=== PATIENT | female | born 1970 | race African-American/Black ===

== ENCOUNTER 2016-11-20 20:57 | Emergency (ER) | payer MEDICAID ==
[~2016-11-20] VITALS: Ht 167.6 cm; Wt 73.0 kg
[2016-11-21] MEDS ORDERED: KETOROLAC 60MG/2ML VIAL IM ONE (02:15)
[2016-11-21 04:31] LABS: CLARITY URINE CLOUDY (CLEAR); COLOR URINE YELLOW (YELLOW); GLUCOSE URINE NEGATIVE (NEGATIVE); KETONES URINE NEGATIVE (NEGATIVE); LEUKOCYTE ESTERASE URINE 1+ (NEGATIVE); NITRITE URINE POSITIVE (NEGATIVE); OCCULT BLOOD URINE NEGATIVE (NEGATIVE); PROTEIN URINE NEGATIVE (NEGATIVE); SPECIFIC GRAVITY URINE 1.014 (1.005-1.030); UROBILINOGEN URINE 0.2 E.U./dL (0.2-1.0)
[2016-11-21 08:28] VITALS: BP 148/82
== END 2016-11-21 05:44 | disposition home or self-care (01) ==
LOC: ER 21:09
DX: N39.0 Urinary tract infection, site not specified (principal); I10 Essential (primary) hypertension; J45.909 Unspecified asthma, uncomplicated; M19.90 Unspecified osteoarthritis, unspecified site; M25.571 Pain in right ankle and joints of right foot; Z88.0 Allergy status to penicillin
CPT/HCPCS: 81001; 81025; 93970; 96372; 99285; J1885

== ENCOUNTER 2016-12-01 14:18 | Emergency (ER) | payer MEDICAID ==
[~2016-12-01] VITALS: Ht 162.6 cm; Wt 80.0 kg
[2016-12-01] MEDS ORDERED: KETOROLAC 60MG/2ML VIAL IM ONE (20:30)
[2016-12-01 23:00] VITALS: BP 184/80
== END 2016-12-01 23:29 | disposition home or self-care (01) ==
LOC: ER 20:26
DX: S82.001A Unspecified fracture of right patella, initial encounter for closed fracture (principal); M19.90 Unspecified osteoarthritis, unspecified site; I10 Essential (primary) hypertension; J45.909 Unspecified asthma, uncomplicated; Z88.0 Allergy status to penicillin; W01.0XXA Fall on same level from slipping, tripping and stumbling without subsequent striking against object, initial encounter; Y93.89 Activity, other specified; Y92.018 Other place in single-family (private) house as the place of occurrence of the external cause
CPT/HCPCS: 29505; 73562; 73610; 96372; 99284; J1885

== ENCOUNTER 2018-04-17 03:35 | Inpatient (IN) | payer MEDICAID ==
[~2018-04-17] VITALS: Ht 167.6 cm; Wt 80.7 kg
[2018-04-17] MEDS ORDERED: ONDANSETRON HCL 4MG/2ML INJ IV STA (04:35)
[2018-04-17] MEDS ORDERED: ASPIRIN 81MG TABLET PO ONE (04:45)
[2018-04-17] MEDS ORDERED: NITROGLYCERIN OINT 1GM/INCH UDPKT TD ONE (04:45)
[2018-04-17] MEDS ORDERED: MORPHINE SULFATE 10 MG/ML CPJ IV ONE (04:45)
[2018-04-17 05:25] LABS: HEMATOCRIT. 32.2 % (36.0-48.0); HEMOGLOBIN. 9.9 g/dL (12.0-16.0); MEAN CORPUSCULAR HEMOGLOBIN 24.5 pg (28.0-32.0); MEAN CORPUSCULAR VOLUME 79.5 fL (81.0-99.0); MEAN PLATELET VOLUME 11.2 fl (7.4-10.4); PLATELET 152 x1000/uL (130-400); RED BLOOD CELL COUNT 4.05 mill/uL (4.2-5.4); RED CELL DISTRIBUTION WIDTH 23.6 % (11.6-14.6)
[2018-04-17 05:32] LABS: CHLORIDE 112 mEq/L (98-107)
[2018-04-17 07:12] LABS: PLATELET ESTIMATE NORMAL
[2018-04-17] MEDS ORDERED: DOCUSATE SODIUM 100MG CAPSULE PO PRN (09:15)
[2018-04-17] MEDS ORDERED: CLONIDINE 0.1MG TABLET PO PRN (09:15)
[2018-04-17] MEDS ORDERED: IPRATROPIUM/ALBUTEROL 0.5-3(2.5)MG/3ML NEB INH PRN (09:15)
[2018-04-17] MEDS ORDERED: ONDANSETRON HCL 4MG/2ML INJ IV PRN (09:15)
[2018-04-17] MEDS ORDERED: GUAIFENESIN 200MG/10ML SUGAR FREE UDC PO PRN (09:15)
[2018-04-17] MEDS ORDERED: ACETAMINOPHEN 325MG TABLET PO PRN (09:15)
[2018-04-17] MEDS ORDERED: MAGNESIUM/ALUMINUM HYDROXIDE/SIMETHICONE 30ML UDC PO PRN (09:15)
[2018-04-17] MEDS ORDERED: LORAZEPAM 0.5MG TABLET PO PRN (09:15)
[2018-04-17] MEDS ORDERED: NITROGLYCERIN 0.4MG TABLET SL SL PRN (09:15)
[2018-04-17 10:52] VITALS: BP 134/70
[2018-04-17] MEDS ORDERED: LOSA25TA3 MT (11:33)
[2018-04-17] MEDS ORDERED: IBUP-1649 MT (11:33)
[2018-04-17] MEDS ORDERED: FERR325T23 MT (11:33)
[2018-04-17] MEDS ORDERED: HYDR-3281 MT (11:33)
[2018-04-17] MEDS ORDERED: FURO-152 MT (11:33)
[2018-04-17] MEDS ORDERED: IBUP-2030 PO (11:33)
[2018-04-17 12:00] VITALS: BP 128/73
[2018-04-17] MEDS: FAMOTIDINE 20MG TABLET PO SCH ×2 (12:05→21:01)
[2018-04-17] MEDS: METOPROLOL TARTRATE 25MG TABLET PO SCH ×2 (12:05→21:01)
[2018-04-17] MEDS: ENOXAPARIN 40MG/0.4ML SYR SUBCUT SCH (12:06)
[2018-04-17] MEDS: KETOROLAC 15MG/ML VIAL IV PRN (13:36)
[2018-04-17 15:23] LABS: OPIATES URINE SCREEN PRESUMTIVE POSITIVE (NEGATIVE)
[2018-04-17 15:24] LABS: *AMPHETAMINES SCREEN URINE NEGATIVE (NEGATIVE); *BARBITURATES SCREEN URINE NEGATIVE (NEGATIVE); *BENZODIAZEPINES SCREEN URINE NEGATIVE (NEGATIVE); *COCAINE SCREEN URINE PRESUMTIVE POSITIVE (NEGATIVE); CANNABINOID URINE SCREEN NEGATIVE (NEGATIVE); PHENCYCLIDINE URINE SCREEN NEGATIVE (NEGATIVE)
[2018-04-17 15:25] LABS: METHADONE URINE SCREEN NEGATIVE (NEGATIVE)
[2018-04-17 15:48] VITALS: BP 100/51
[2018-04-17 16:18] LABS: CREATINE KINASE MB FRACTION 2.1 ng/mL (0.5-3.6)
[2018-04-17] MEDS: SUCRALFATE 1 G/10 ML UDC PO SCH ×2 (17:30→21:01)
[2018-04-17 20:00] VITALS: BP 118/64
[2018-04-17] MEDS ORDERED: ZOLPIDEM TARTRATE 5MG TABLET PO PRN (21:00)
[2018-04-18] VITALS: BP 112/56
[2018-04-18] MEDS: KETOROLAC 15MG/ML VIAL IV PRN (04:35)
[2018-04-18 06:00] VITALS: BP 130/63
[2018-04-18] MEDS: SUCRALFATE 1 G/10 ML UDC PO SCH ×2 (06:24→12:19)
[2018-04-18 08:00] VITALS: BP 112/67
[2018-04-18] MEDS ORDERED: ASPIRIN 325MG EC TABLET PO SCH (09:00)
[2018-04-18] MEDS: METOPROLOL TARTRATE 25MG TABLET PO SCH (09:49)
[2018-04-18] MEDS: FAMOTIDINE 20MG TABLET PO SCH (09:49)
[2018-04-18] MEDS: ENOXAPARIN 40MG/0.4ML SYR SUBCUT SCH (09:50)
[2018-04-18 12:00] VITALS: BP 159/86
[2018-04-18 12:52] VITALS: BP 159/86
== END 2018-04-18 13:10 | disposition home or self-care (01) | DRG 816 ==
LOC: ER 03:35 → 5WST 06:04 → EDBEDREQ 06:11 → ENRESERV 07:57
PROVIDERS: ADMIT Internal Medicine; ATTEND Internal Medicine
DX: T40.5X1A Poisoning by cocaine, accidental (unintentional), initial encounter (principal); E44.1 Mild protein-calorie malnutrition; I10 Essential (primary) hypertension; E83.51 Hypocalcemia; D63.8 Anemia in other chronic diseases classified elsewhere; F14.10 Cocaine abuse, uncomplicated; F17.210 Nicotine dependence, cigarettes, uncomplicated; J45.909 Unspecified asthma, uncomplicated; M19.90 Unspecified osteoarthritis, unspecified site; Z88.0 Allergy status to penicillin; Z68.28 Body mass index [BMI] 28.0-28.9, adult; Y92.89 Other specified places as the place of occurrence of the external cause
CPT/HCPCS: 36415; 71045; 80061; 80305; 82550; 82553; 83036; 83880; 84484; 85379; 93005; 96374; 96375; 99285; J1650; J1885; J2270; J2405

== ENCOUNTER 2019-06-14 02:01 | Inpatient (IN) | payer MEDICAID ==
[~2019-06-14] VITALS: Ht 170.2 cm; Wt 80.8 kg
[~2019-06-14 02:01] MED LIST: FERR325T23 MT; FURO-152 MT; HYDR-3281 MT; IBUP-2030 PO; IBUP-2077 MT; LOSA25TA3 MT
[2019-06-14] MEDS ORDERED: ONDANSETRON HCL 4MG/2ML INJ IV STA (02:36)
[2019-06-14] MEDS ORDERED: FUROSEMIDE 40MG/4ML VIAL IV ONE (02:45)
[2019-06-14] MEDS ORDERED: NITROGLYCERIN OINT 1GM/INCH UDPKT TD ONE (02:45)
[2019-06-14 02:59] LABS: BASOPHILS % 2.1 % (0.0-2.0); EOSINOPHILS % 3.1 % (0.0-5.0); HEMATOCRIT. 35.6 % (36.0-48.0); HEMOGLOBIN. 11.5 g/dL (12.0-16.0); LYMPHOCYTES % 31.1 % (20.0-50.0); MEAN CORPUSCULAR HEMOGLOBIN 27.4 pg (28.0-32.0); MEAN PLATELET VOLUME 10.1 fl (7.4-10.4); MONOCYTES % 7.9 % (2.0-8.0); NEUTROPHILS % 55.8 % (40.0-76.0); PLATELET 179 x1000/uL (130-400); RED BLOOD CELL COUNT 4.19 mill/uL (4.2-5.4); RED CELL DISTRIBUTION WIDTH 18.9 % (11.6-14.6)
[2019-06-14 03:05] LABS: CHLORIDE 110 mEq/L (98-107)
[2019-06-14 03:11] LABS: ETHANOL BLOOD < 10 mg/dL
[2019-06-14 03:58] LABS: *AMPHETAMINES SCREEN URINE NEGATIVE (NEGATIVE)
[2019-06-14 03:59] LABS: *BARBITURATES SCREEN URINE NEGATIVE (NEGATIVE); *BENZODIAZEPINES SCREEN URINE NEGATIVE (NEGATIVE); *COCAINE SCREEN URINE PRESUMTIVE POSITIVE (NEGATIVE); CANNABINOID URINE SCREEN NEGATIVE (NEGATIVE); OPIATES URINE SCREEN NEGATIVE (NEGATIVE); PHENCYCLIDINE URINE SCREEN NEGATIVE (NEGATIVE)
[2019-06-14] MEDS ORDERED: FUROSEMIDE 40MG/4ML VIAL IV SCH (11:45)
[2019-06-14] MEDS ORDERED: HYDRALAZINE 20MG/ML VIAL IV PRN (11:45)
[2019-06-14] MEDS ORDERED: ONDANSETRON HCL 4MG/2ML INJ IV PRN (11:45)
[2019-06-14] MEDS ORDERED: LOSARTAN POTASSIUM 25 MG TABLET PO SCH (12:00)
[2019-06-14 15:27] LABS: METHADONE URINE SCREEN NEGATIVE (NEGATIVE)
[2019-06-14] MEDS: CLONIDINE 0.1MG TABLET PO PRN (19:09)
[2019-06-14] MEDS: HEPARIN 5000 UNITS/ML VIAL SUBCUT SCH (22:30)
[2019-06-14] MEDS: LOSARTAN POTASSIUM 25 MG TABLET PO SCH (22:30)
[2019-06-14] MEDS: ALBUTEROL (0.083%) 2.5MG/3ML NEB HHN PRN (22:50)
[2019-06-14 22:54] VITALS: BP 147/91
[2019-06-14 23:00] VITALS: BP 147/91
[2019-06-14] MEDS: FUROSEMIDE 40MG/4ML VIAL IV SCH (23:00)
[2019-06-14] MEDS ORDERED: ALBU6.7H9 IH (23:25)
[2019-06-14] MEDS ORDERED: FURO-152 PO (23:25)
[2019-06-14] MEDS ORDERED: ASPI-1497 PO (23:25)
[2019-06-14] MEDS ORDERED: CARV3.1242 PO (23:25)
[2019-06-14] MEDS ORDERED: LIP40 PO (23:25)
[2019-06-14] MEDS ORDERED: PHEN50TA PO (23:25)
[2019-06-14] MEDS ORDERED: CARV6.2548 PO (23:25)
[2019-06-15] VITALS: BP 134/97
[2019-06-15 04:00] VITALS: BP 149/99
[2019-06-15] MEDS: ACETAMINOPHEN 325MG TABLET PO PRN (04:44)
[2019-06-15] MEDS: CLONIDINE 0.1MG TABLET PO PRN ×2 (04:44→17:55)
[2019-06-15 08:00] VITALS: BP 150/100
[2019-06-15] MEDS: ALBUTEROL (0.083%) 2.5MG/3ML NEB HHN PRN (08:25)
[2019-06-15] MEDS: FERROUS SULFATE 325MG TABLET PO SCH (09:25)
[2019-06-15] MEDS: LOSARTAN POTASSIUM 25 MG TABLET PO SCH (09:25)
[2019-06-15] MEDS: HEPARIN 5000 UNITS/ML VIAL SUBCUT SCH ×2 (09:26→20:49)
[2019-06-15] MEDS: FUROSEMIDE 40MG/4ML VIAL IV SCH ×2 (09:37→17:56)
[2019-06-15 09:51] LABS: BASOPHILS % 1.1 % (0.0-2.0); EOSINOPHILS % 1.7 % (0.0-5.0); HEMATOCRIT. 36.9 % (36.0-48.0); HEMOGLOBIN. 11.8 g/dL (12.0-16.0); LYMPHOCYTES % 30.7 % (20.0-50.0); MEAN CORPUSCULAR HEMOGLOBIN 27.2 pg (28.0-32.0); MEAN PLATELET VOLUME 10.7 fl (7.4-10.4); NEUTROPHILS % 56.5 % (40.0-76.0); PLATELET 169 x1000/uL (130-400); RED BLOOD CELL COUNT 4.34 mill/uL (4.2-5.4); RED CELL DISTRIBUTION WIDTH 18.7 % (11.6-14.6)
[2019-06-15 10:08] LABS: CHLORIDE 109 mEq/L (98-107)
[2019-06-15 12:00] VITALS: BP 141/89
[2019-06-15 16:00] VITALS: BP 157/111
[2019-06-15] MEDS: IPRATROPIUM BROMIDE (0.02%) 0.5MG/2.5ML NEB HHN PRN (17:17)
[2019-06-15] MEDS: HYDRALAZINE HCL 25MG TABLET PO SCH ×2 (17:56→21:00)
[2019-06-15 20:00] VITALS: BP 140/89
[2019-06-16] VITALS: BP 148/101
[2019-06-16 04:30] VITALS: BP 169/112
[2019-06-16] MEDS: HYDRALAZINE HCL 25MG TABLET PO SCH ×3 (05:15→22:14)
[2019-06-16] MEDS: IPRATROPIUM BROMIDE (0.02%) 0.5MG/2.5ML NEB HHN PRN (05:18)
[2019-06-16] MEDS: FUROSEMIDE 40MG/4ML VIAL IV SCH ×2 (06:57→17:42)
[2019-06-16 08:00] VITALS: BP 155/109
[2019-06-16 08:38] LABS: BASOPHILS % 2.2 % (0.0-2.0); EOSINOPHILS % 2.6 % (0.0-5.0); HEMATOCRIT. 40.3 % (36.0-48.0); LYMPHOCYTES % 32.1 % (20.0-50.0); MEAN CORPUSCULAR HEMOGLOBIN 27.5 pg (28.0-32.0); MEAN CORPUSCULAR VOLUME 84.9 fL (81.0-99.0); MEAN PLATELET VOLUME 9.9 fl (7.4-10.4); MONOCYTES % 6.7 % (2.0-8.0); NEUTROPHILS % 56.4 % (40.0-76.0); PLATELET 175 x1000/uL (130-400); RED BLOOD CELL COUNT 4.74 mill/uL (4.2-5.4); RED CELL DISTRIBUTION WIDTH 18.9 % (11.6-14.6)
[2019-06-16] MEDS: FERROUS SULFATE 325MG TABLET PO SCH (08:42)
[2019-06-16] MEDS: LOSARTAN POTASSIUM 25 MG TABLET PO SCH ×3 (08:43→22:14)
[2019-06-16] MEDS: CLONIDINE 0.1MG TABLET PO PRN (08:43)
[2019-06-16] MEDS: HEPARIN 5000 UNITS/ML VIAL SUBCUT SCH ×2 (08:45→22:15)
[2019-06-16 09:19] LABS: CHLORIDE 106 mEq/L (98-107)
[2019-06-16 12:00] VITALS: BP 125/88
[2019-06-16] MEDS ORDERED: BISACODYL 10MG SUPP PR PRN (12:30)
[2019-06-16] MEDS ORDERED: DOCUSATE SODIUM 100MG CAPSULE PO PRN (12:30)
[2019-06-16] MEDS ORDERED: POLYETHYLENE GLYCOL 3350 (17GM) 1 DOSE PACK PO PRN (12:30)
[2019-06-16] MEDS ORDERED: MAGNESIUM CITRATE 300ML SOLUTION PO NR (12:30)
[2019-06-16] MEDS ORDERED: MAGNESIUM HYDROXIDE 400MG/5ML 30ML UDC PO PRN (12:30)
[2019-06-16 16:00] VITALS: BP 112/77
[2019-06-16 20:00] VITALS: BP 146/111
[2019-06-16] MEDS ORDERED: SENNOSIDES/DOCUSATE SOD 8.6/50MG TABLET PO PRN (21:00)
[2019-06-16] MEDS: ACETAMINOPHEN 325MG TABLET PO PRN (23:57)
[2019-06-17] VITALS: BP 153/111
[2019-06-17 04:00] VITALS: BP 168/133
[2019-06-17] MEDS: CLONIDINE 0.1MG TABLET PO PRN (05:21)
[2019-06-17 06:24] LABS: BASOPHILS % 1.2 % (0.0-2.0); EOSINOPHILS % 2.4 % (0.0-5.0); HEMATOCRIT. 38.9 % (36.0-48.0); HEMOGLOBIN. 12.9 g/dL (12.0-16.0); LYMPHOCYTES % 30.4 % (20.0-50.0); MEAN CORPUSCULAR HEMOGLOBIN 27.8 pg (28.0-32.0); MEAN CORPUSCULAR VOLUME 83.9 fL (81.0-99.0); MONOCYTES % 7.7 % (2.0-8.0); NEUTROPHILS % 58.3 % (40.0-76.0); PLATELET 191 x1000/uL (130-400); RED BLOOD CELL COUNT 4.64 mill/uL (4.2-5.4); RED CELL DISTRIBUTION WIDTH 18.3 % (11.6-14.6)
[2019-06-17] MEDS: HYDRALAZINE HCL 25MG TABLET PO SCH ×3 (06:32→21:57)
[2019-06-17] MEDS ORDERED: FUROSEMIDE 40MG/4ML VIAL IV SCH (07:15)
[2019-06-17 08:00] VITALS: BP 154/97
[2019-06-17] MEDS: LOSARTAN POTASSIUM 25 MG TABLET PO SCH (08:48)
[2019-06-17] MEDS: HEPARIN 5000 UNITS/ML VIAL SUBCUT SCH ×2 (08:49→21:57)
[2019-06-17] MEDS: FERROUS SULFATE 325MG TABLET PO SCH (08:49)
[2019-06-17 09:10] LABS: CHLORIDE 104 mEq/L (98-107)
[2019-06-17 12:00] VITALS: BP 127/92
[2019-06-17] MEDS: AMLODIPINE 5MG TABLET PO SCH (15:54)
[2019-06-17 16:00] VITALS: BP 135/75
[2019-06-17 20:00] VITALS: BP 139/89
[2019-06-17] MEDS: LOSARTAN POTASSIUM 50 MG TABLET PO SCH (21:56)
[2019-06-18] VITALS: BP 159/109
[2019-06-18 04:00] VITALS: BP 151/91
[2019-06-18 06:08] LABS: BASOPHILS % 0.4 % (0.0-2.0); EOSINOPHILS % 2.2 % (0.0-5.0); HEMOGLOBIN. 13.4 g/dL (12.0-16.0); LYMPHOCYTES % 32.9 % (20.0-50.0); MEAN CORPUSCULAR HEMOGLOBIN 27.4 pg (28.0-32.0); MEAN CORPUSCULAR VOLUME 83.9 fL (81.0-99.0); MEAN PLATELET VOLUME 10.5 fl (7.4-10.4); MONOCYTES % 11.3 % (2.0-8.0); NEUTROPHILS % 53.2 % (40.0-76.0); PLATELET 195 x1000/uL (130-400); RED BLOOD CELL COUNT 4.89 mill/uL (4.2-5.4); RED CELL DISTRIBUTION WIDTH 18.5 % (11.6-14.6)
[2019-06-18] MEDS: HYDRALAZINE HCL 25MG TABLET PO SCH ×3 (06:20→22:02)
[2019-06-18 07:44] LABS: CHLORIDE 105 mEq/L (98-107)
[2019-06-18 08:00] VITALS: BP 154/97
[2019-06-18] MEDS: LOSARTAN POTASSIUM 50 MG TABLET PO SCH ×2 (08:47→22:01)
[2019-06-18] MEDS: FERROUS SULFATE 325MG TABLET PO SCH (08:47)
[2019-06-18] MEDS: FUROSEMIDE 40MG TABLET PO SCH (08:47)
[2019-06-18] MEDS: HEPARIN 5000 UNITS/ML VIAL SUBCUT SCH ×2 (08:47→22:01)
[2019-06-18] MEDS: AMLODIPINE 5MG TABLET PO SCH (08:47)
[2019-06-18 12:00] VITALS: BP 122/76
[2019-06-18 16:00] VITALS: BP 145/75
[2019-06-18] MEDS: DILTIAZEM HCL 60MG TABLET PO SCH ×2 (16:06→22:02)
[2019-06-18 19:33] LABS: T4 FREE 1.32 ng/dL (0.76-1.46)
[2019-06-18 20:00] VITALS: BP 106/71
[2019-06-19] VITALS: BP 130/91
[2019-06-19 04:00] VITALS: BP 143/85
[2019-06-19 06:18] LABS: HEMATOCRIT. 43.2 % (36.0-48.0); HEMOGLOBIN. 13.8 g/dL (12.0-16.0); MEAN CORPUSCULAR HEMOGLOBIN 27.5 pg (28.0-32.0); MEAN PLATELET VOLUME 10.9 fl (7.4-10.4); PLATELET 194 x1000/uL (130-400); RED BLOOD CELL COUNT 5.03 mill/uL (4.2-5.4); RED CELL DISTRIBUTION WIDTH 19.4 % (11.6-14.6)
[2019-06-19 06:41] LABS: CHLORIDE 105 mEq/L (98-107)
[2019-06-19] MEDS: HYDRALAZINE HCL 25MG TABLET PO SCH (07:04)
[2019-06-19] MEDS: DILTIAZEM HCL 60MG TABLET PO SCH (07:04)
[2019-06-19 08:00] VITALS: BP 147/96
[2019-06-19] MEDS: FERROUS SULFATE 325MG TABLET PO SCH (08:48)
[2019-06-19] MEDS: LOSARTAN POTASSIUM 50 MG TABLET PO SCH (08:48)
[2019-06-19] MEDS: FUROSEMIDE 40MG TABLET PO SCH (08:48)
[2019-06-19] MEDS: HEPARIN 5000 UNITS/ML VIAL SUBCUT SCH (08:49)
[2019-06-19 09:55] LABS: PLATELET ESTIMATE NORMAL
[2019-06-19] MEDS ORDERED: SODIUM POLYSTYRENE SULFONATE 15 G/60 ML BOT PO SCH (10:00)
[2019-06-19] MEDS ORDERED: SENN-3 PO (11:58)
[2019-06-19] MEDS ORDERED: DOCU-150 PO (11:58)
[2019-06-19] MEDS ORDERED: FURO40TA5 PO (11:58)
[2019-06-19] MEDS ORDERED: LOSA50TA3 PO (11:58)
[2019-06-19] MEDS ORDERED: DILT60TA35 PO (11:58)
[2019-06-19] MEDS ORDERED: HYDR-4134 PO (11:58)
[2019-06-19] MEDS ORDERED: MOM PO (11:58)
[2019-06-19] MEDS ORDERED: POLY17PO3 PO (11:59)
[2019-06-19 12:06] VITALS: BP 135/78
== END 2019-06-19 14:19 | disposition home or self-care (01) | DRG 194 ==
LOC: ER 02:01 → 6WST 05:50 → EDBEDREQTM 05:55 → EDBEDREQ 05:55 → ENRESERV 20:35 → CANBEDREQ 06-15 03:43
PROVIDERS: ADMIT Family Medicine Adult Medicine; ATTEND Family Medicine Adult Medicine
DX: I11.0 Hypertensive heart disease with heart failure (principal); E87.8 Other disorders of electrolyte and fluid balance, not elsewhere classified; I31.3 Pericardial effusion (noninflammatory); J45.901 Unspecified asthma with (acute) exacerbation; E83.51 Hypocalcemia; I16.1 Hypertensive emergency; I50.41 Acute combined systolic (congestive) and diastolic (congestive) heart failure; Z79.01 Long term (current) use of anticoagulants; I47.1 Supraventricular tachycardia; D64.9 Anemia, unspecified; F14.10 Cocaine abuse, uncomplicated; G40.909 Epilepsy, unspecified, not intractable, without status epilepticus; F17.210 Nicotine dependence, cigarettes, uncomplicated; F19.10 Other psychoactive substance abuse, uncomplicated; I34.0 Nonrheumatic mitral (valve) insufficiency; Z88.0 Allergy status to penicillin; Z79.82 Long term (current) use of aspirin; Z79.51 Long term (current) use of inhaled steroids; Z79.02 Long term (current) use of antithrombotics/antiplatelets; Z79.52 Long term (current) use of systemic steroids; Z79.891 Long term (current) use of opiate analgesic; Z79.1 Long term (current) use of non-steroidal anti-inflammatories (NSAID); Z79.811 Long term (current) use of aromatase inhibitors; Z79.899 Other long term (current) drug therapy; Z91.19 Patient's noncompliance with other medical treatment and regimen
CPT/HCPCS: 36415; 71045; 80053; 80305; 80320; 83735; 83880; 84439; 84443; 84484; 85025; 93005; 93306; 94640; 97162; 99285; J1644; J1940; J2405; G0480

== ENCOUNTER 2019-08-05 05:28 | Inpatient (IN) | payer MEDICAID ==
[~2019-08-05] VITALS: Ht 167.6 cm; Wt 81.6 kg
[~2019-08-05 05:28] MED LIST changes: +ALBU6.7H9 IH; +ASPI-1497 PO; +DILT60TA35 PO; +DOCU-150 PO; -FURO-152 MT; +FURO40TA5 PO; +HYDR-4134 PO; -IBUP-2030 PO; -IBUP-2077 MT; +LIP40 PO; -LOSA25TA3 MT; +LOSA50TA3 PO; +MOM PO; +PHEN50TA PO; +POLY17PO3 PO; +SENN-3 PO
[2019-08-05] MEDS ORDERED: ONDANSETRON HCL 4MG/2ML INJ IV STA (06:19)
[2019-08-05] MEDS ORDERED: MORPHINE SULFATE 4 MG/ML CPJ (NOT FOR IM USE) IV STA (06:19)
[2019-08-05] MEDS ORDERED: ASPIRIN 81MG TABLET PO ONE (06:30)
[2019-08-05] MEDS ORDERED: FUROSEMIDE 20MG/2ML VIAL IVP ONE (06:45)
[2019-08-05] MEDS ORDERED: LOSARTAN POTASSIUM 100 MG TABLET PO ONE (06:45)
[2019-08-05 08:45] LABS: HEMATOCRIT. 34.6 % (36.0-48.0); MEAN CORPUSCULAR HEMOGLOBIN 27.9 pg (28.0-32.0); MEAN CORPUSCULAR VOLUME 87.7 fL (81.0-99.0); MEAN PLATELET VOLUME 12.1 fl (7.4-10.4); PLATELET 138 x1000/uL (130-400); RED BLOOD CELL COUNT 3.95 mill/uL (4.2-5.4); RED CELL DISTRIBUTION WIDTH 20.1 % (11.6-14.6)
[2019-08-05 08:51] LABS: CHLORIDE 111 mEq/L (98-107)
[2019-08-05 09:28] LABS: PLATELET ESTIMATE NORMAL
[2019-08-05] MEDS ORDERED: HYDRALAZINE 20MG/ML VIAL IV ONE (11:45)
[2019-08-05] MEDS ORDERED: ACETAMINOPHEN 650MG/20.3ML UDC GT PRN ×2 (14:30)
[2019-08-05] MEDS ORDERED: DOCUSATE SODIUM 100MG CAPSULE PO PRN (14:30)
[2019-08-05] MEDS ORDERED: MAGNESIUM/ALUMINUM HYDROXIDE/SIMETHICONE 30ML UDC PO PRN (14:30)
[2019-08-05] MEDS ORDERED: ONDANSETRON HCL 4MG/2ML INJ IV PRN (14:30)
[2019-08-05] MEDS ORDERED: CLONIDINE 0.1MG TABLET PO PRN (14:30)
[2019-08-05] MEDS ORDERED: ACETAMINOPHEN 650MG SUPP PR PRN (14:30)
[2019-08-05] MEDS ORDERED: GUAIFENESIN 200MG/10ML SUGAR FREE UDC PO PRN (14:30)
[2019-08-05 15:37] VITALS: BP 157/107
[2019-08-05 15:59] VITALS: BP 147/79
[2019-08-05] MEDS ORDERED: LOSARTAN POTASSIUM 50 MG TABLET PO NR (16:00)
[2019-08-05] MEDS: FUROSEMIDE 40MG/4ML VIAL IVP SCH (16:42)
[2019-08-05] MEDS: ENOXAPARIN 40MG/0.4ML SYR SUBCUT SCH (16:43)
[2019-08-05] MEDS: HYDROCODONE/ACETAMINOPHEN 5/325MG TABLET PO PRN (16:49)
[2019-08-05 19:59] VITALS: BP 121/58
[2019-08-05] MEDS: ATORVASTATIN CALCIUM 20MG TABLET PO SCH (21:01)
[2019-08-05 21:59] VITALS: BP 104/52
[2019-08-05 22:14] LABS: CLARITY URINE CLEAR (CLEAR); COLOR URINE YELLOW (YELLOW); KETONES URINE NEGATIVE (NEGATIVE); LEUKOCYTE ESTERASE URINE TRACE (NEGATIVE); NITRITE URINE NEGATIVE (NEGATIVE); OCCULT BLOOD URINE NEGATIVE (NEGATIVE); PH URINE 6.5 (4.5-8.0); PROTEIN URINE NEGATIVE (NEGATIVE); SPECIFIC GRAVITY URINE 1.009 (1.005-1.030)
[2019-08-05 22:36] LABS: *BARBITURATES SCREEN URINE NEGATIVE (NEGATIVE); *BENZODIAZEPINES SCREEN URINE NEGATIVE (NEGATIVE)
[2019-08-05 22:37] LABS: *AMPHETAMINES SCREEN URINE NEGATIVE (NEGATIVE); *COCAINE SCREEN URINE PRESUMTIVE POSITIVE (NEGATIVE); CANNABINOID URINE SCREEN NEGATIVE (NEGATIVE); METHADONE URINE SCREEN NEGATIVE (NEGATIVE); OPIATES URINE SCREEN PRESUMTIVE POSITIVE (NEGATIVE); PHENCYCLIDINE URINE SCREEN NEGATIVE (NEGATIVE)
[2019-08-05 23:48] LABS: CREATINE KINASE 38 IU/L (26-192)
[2019-08-05 23:49] LABS: CREATINE KINASE MB FRACTION < 1.0 ng/mL (0.5-3.6)
[2019-08-05 23:59] VITALS: BP 115/72
[2019-08-06] VITALS (11 sets, daily range): BP systolic 125–154; BP diastolic 61–98
[2019-08-06 06:20] LABS: CHLORIDE 109 mEq/L (98-107)
[2019-08-06] MEDS: FUROSEMIDE 40MG/4ML VIAL IVP SCH ×2 (06:21→16:52)
[2019-08-06 06:27] LABS: BASOPHILS % 0.6 % (0.0-2.0); EOSINOPHILS % 3.1 % (0.0-5.0); HEMATOCRIT. 35.3 % (36.0-48.0); HEMOGLOBIN. 11.1 g/dL (12.0-16.0); MEAN CORPUSCULAR HEMOGLOBIN 27.6 pg (28.0-32.0); MEAN CORPUSCULAR VOLUME 87.8 fL (81.0-99.0); MEAN PLATELET VOLUME 11.7 fl (7.4-10.4); MONOCYTES % 10.9 % (2.0-8.0); NEUTROPHILS % 64.4 % (40.0-76.0); PLATELET 129 x1000/uL (130-400); RED BLOOD CELL COUNT 4.02 mill/uL (4.2-5.4); RED CELL DISTRIBUTION WIDTH 20.5 % (11.6-14.6)
[2019-08-06 06:28] LABS: LDL CHOLESTEROL 64 mg/dL (5-100)
[2019-08-06 06:29] LABS: CREATINE KINASE 38 IU/L (26-192); HDL CHOLESTEROL 38 mg/dL (40-59)
[2019-08-06 06:33] LABS: CREATINE KINASE MB FRACTION 1.2 ng/mL (0.5-3.6)
[2019-08-06] MEDS ORDERED: FUROSEMIDE 40MG/4ML VIAL IV SCH (09:00)
[2019-08-06] MEDS: ASPIRIN 81MG TABLET PO SCH (09:11)
[2019-08-06] MEDS: HYDROCODONE/ACETAMINOPHEN 5/325MG TABLET PO PRN ×2 (12:45→23:44)
[2019-08-06] MEDS: ENOXAPARIN 40MG/0.4ML SYR SUBCUT SCH (16:53)
[2019-08-06] MEDS: PHENYTOIN SODIUM EXTENDED 100MG CAPSULE PO SCH (21:37)
[2019-08-06] MEDS: ATORVASTATIN CALCIUM 20MG TABLET PO SCH (21:38)
[2019-08-07] VITALS (12 sets, daily range): BP systolic 125–159; BP diastolic 64–99
[2019-08-07] MEDS: HYDROCODONE/ACETAMINOPHEN 5/325MG TABLET PO PRN (05:30)
[2019-08-07] MEDS: FUROSEMIDE 40MG/4ML VIAL IVP SCH ×2 (06:49→16:47)
[2019-08-07] MEDS: ASPIRIN 81MG TABLET PO SCH (08:52)
[2019-08-07] MEDS: LOSARTAN POTASSIUM 25 MG TABLET PO SCH (11:57)
[2019-08-07] MEDS ORDERED: PHENYTOIN SODIUM EXTENDED 100MG CAPSULE PO SCH (12:00)
[2019-08-07] MEDS ORDERED: PHEN100C4 MT (12:13)
[2019-08-07] MEDS ORDERED: FURO-151 MT (12:13)
[2019-08-07 15:29] LABS: BASOPHILS % 0.8 % (0.0-2.0); EOSINOPHILS % 4.5 % (0.0-5.0); HEMATOCRIT. 34.3 % (36.0-48.0); LYMPHOCYTES % 21.2 % (20.0-50.0); MEAN CORPUSCULAR HEMOGLOBIN 27.9 pg (28.0-32.0); MEAN CORPUSCULAR VOLUME 87.4 fL (81.0-99.0); MEAN PLATELET VOLUME 11.1 fl (7.4-10.4); MONOCYTES % 10.8 % (2.0-8.0); NEUTROPHILS % 62.7 % (40.0-76.0); PLATELET 121 x1000/uL (130-400); RED BLOOD CELL COUNT 3.92 mill/uL (4.2-5.4); RED CELL DISTRIBUTION WIDTH 19.8 % (11.6-14.6)
[2019-08-07 15:55] LABS: CHLORIDE 105 mEq/L (98-107)
[2019-08-07] MEDS: ENOXAPARIN 40MG/0.4ML SYR SUBCUT SCH (16:47)
[2019-08-07] MEDS: ATORVASTATIN CALCIUM 20MG TABLET PO SCH (20:16)
[2019-08-07] MEDS: PHENYTOIN SODIUM EXTENDED 100MG CAPSULE PO SCH (20:16)
[2019-08-08] VITALS (13 sets, daily range): BP systolic 114–179; BP diastolic 29–119
[2019-08-08] MEDS: FUROSEMIDE 40MG/4ML VIAL IVP SCH ×2 (06:45→17:12)
[2019-08-08] MEDS: LOSARTAN POTASSIUM 25 MG TABLET PO SCH (09:06)
[2019-08-08] MEDS: ASPIRIN 81MG TABLET PO SCH (09:06)
[2019-08-08] MEDS: ENOXAPARIN 40MG/0.4ML SYR SUBCUT SCH (17:12)
[2019-08-08] MEDS: PHENYTOIN SODIUM EXTENDED 100MG CAPSULE PO SCH (21:01)
[2019-08-08] MEDS: ATORVASTATIN CALCIUM 20MG TABLET PO SCH (21:01)
[2019-08-09] MEDS ORDERED: LOSARTAN POTASSIUM 50 MG TABLET PO SCH (09:00)
== END 2019-08-08 21:19 | disposition home or self-care (01) | DRG 194 ==
LOC: ER 05:28 → 3WST 10:06 → EDBEDREQ 10:09 → EDBEDREQTM 10:09 → ENRESERV 12:18
PROVIDERS: ADMIT Family Medicine; ATTEND Family Medicine
DX: I11.0 Hypertensive heart disease with heart failure (principal); I27.20 Pulmonary hypertension, unspecified; E44.0 Moderate protein-calorie malnutrition; I31.3 Pericardial effusion (noninflammatory); I08.3 Combined rheumatic disorders of mitral, aortic and tricuspid valves; N28.9 Disorder of kidney and ureter, unspecified; I42.9 Cardiomyopathy, unspecified; E78.5 Hyperlipidemia, unspecified; F14.90 Cocaine use, unspecified, uncomplicated; F17.210 Nicotine dependence, cigarettes, uncomplicated; Z88.0 Allergy status to penicillin; Z79.899 Other long term (current) drug therapy; Z71.51 Drug abuse counseling and surveillance of drug abuser; I50.43 Acute on chronic combined systolic (congestive) and diastolic (congestive) heart failure; K21.9 Gastro-esophageal reflux disease without esophagitis
CPT/HCPCS: 36415; 71045; 80053; 80061; 80185; 80305; 81003; 82550; 82553; 83880; 84484; 85025; 93005; 93306; 99285; J0360; J1650; J1940; J2270; J2405

== ENCOUNTER 2021-05-12 06:39 | Inpatient (IN) | payer MEDICAID ==
[~2021-05-12] VITALS: Ht 170.2 cm; Wt 77.7 kg
[~2021-05-12 06:39] MED LIST changes: +FURO-151 MT; -HYDR-3281 MT; +HYDR-4346 MT; +PHEN100C4 MT
[2021-05-12 08:10] LABS: CHLORIDE 113 mEq/L (98-107)
[2021-05-12 08:33] LABS: BASOPHILS % 0.5 % (0.0-2.0); EOSINOPHILS % 1.5 % (0.0-5.0); HEMATOCRIT. 36.4 % (36.0-48.0); HEMOGLOBIN. 12.1 g/dL (12.0-16.0); LYMPHOCYTES % 18.4 % (20.0-50.0); MEAN CORPUSCULAR HEMOGLOBIN 31.1 pg (28.0-32.0); MEAN CORPUSCULAR VOLUME 93.9 fL (81.0-99.0); MEAN PLATELET VOLUME 11.3 fl (7.4-10.4); MONOCYTES % 7.8 % (2.0-8.0); NEUTROPHILS % 71.8 % (40.0-76.0); PLATELET 134 x1000/uL (130-400); RED BLOOD CELL COUNT 3.87 mill/uL (4.2-5.4); RED CELL DISTRIBUTION WIDTH 15.5 % (11.6-14.6)
[2021-05-12] MEDS ORDERED: ASPIRIN 81MG TABLET PO ONE (09:45)
[2021-05-12] MEDS ORDERED: FUROSEMIDE 40MG/4ML VIAL IVP ONE (09:45)
[2021-05-12] MEDS ORDERED: CLONIDINE 0.1MG TABLET PO PRN (10:45)
[2021-05-12] MEDS ORDERED: KETOROLAC 15MG/ML VIAL IV PRN (10:45)
[2021-05-12] MEDS ORDERED: MAGNESIUM/ALUMINUM HYDROXIDE/SIMETHICONE 30ML UDC PO PRN (10:45)
[2021-05-12] MEDS ORDERED: ONDANSETRON HCL 4MG/2ML INJ IV PRN (10:45)
[2021-05-12] MEDS ORDERED: NITROGLYCERIN 0.4MG TABLET SL SL PRN (10:45)
[2021-05-12] MEDS ORDERED: GUAIFENESIN 200MG/10ML SUGAR FREE UDC PO PRN (10:45)
[2021-05-12] MEDS ORDERED: ZOLPIDEM TARTRATE 5MG TABLET PO PRN (10:45)
[2021-05-12] MEDS ORDERED: ACETAMINOPHEN 325MG TABLET PO PRN ×2 (10:45)
[2021-05-12] MEDS: AMLODIPINE 10MG TABLET PO SCH (11:06)
[2021-05-12] MEDS: ENOXAPARIN 40MG/0.4ML SYR SUBCUT SCH (11:08)
[2021-05-12] MEDS: FAMOTIDINE 20MG TABLET PO SCH (11:38)
[2021-05-12] MEDS: DOCUSATE SODIUM 100MG CAPSULE PO PRN (11:42)
[2021-05-12 13:35] LABS: *AMPHETAMINES SCREEN URINE NEGATIVE (NEGATIVE); *BARBITURATES SCREEN URINE NEGATIVE (NEGATIVE); *BENZODIAZEPINES SCREEN URINE NEGATIVE (NEGATIVE); *COCAINE SCREEN URINE PRESUMTIVE POSITIVE (NEGATIVE); METHADONE URINE SCREEN NEGATIVE (NEGATIVE)
[2021-05-12 13:36] LABS: CANNABINOID URINE SCREEN NEGATIVE (NEGATIVE); OPIATES URINE SCREEN NEGATIVE (NEGATIVE); PHENCYCLIDINE URINE SCREEN NEGATIVE (NEGATIVE)
[2021-05-12 16:01] LABS: CREATINE KINASE MB FRACTION 1.6 ng/mL (0.5-3.6)
[2021-05-12] MEDS: FUROSEMIDE 40MG/4ML VIAL IVP SCH (18:01)
[2021-05-12 20:28] VITALS: BP 142/78
[2021-05-12] MEDS: ASCORBIC ACID 500 MG TABLET PO SCH (22:08)
[2021-05-12] MEDS ORDERED: COR12 MT ×2 (22:45→22:47)
[2021-05-12 23:38] LABS: CREATINE KINASE MB FRACTION 1.6 ng/mL (0.5-3.6)
[2021-05-13] MEDS ORDERED: *PATIENT'S OWN MEDICATION STORAGE XX SCH (00:15)
[2021-05-13 04:00] VITALS: BP 129/81
[2021-05-13] MEDS: FUROSEMIDE 40MG/4ML VIAL IVP SCH ×2 (06:14→17:56)
[2021-05-13 06:45] LABS: BASOPHILS % 0.7 % (0.0-2.0); EOSINOPHILS % 2.9 % (0.0-5.0); HEMATOCRIT. 38.1 % (36.0-48.0); HEMOGLOBIN. 13.1 g/dL (12.0-16.0); LYMPHOCYTES % 34.8 % (20.0-50.0); MEAN CORPUSCULAR HEMOGLOBIN 31.5 pg (28.0-32.0); MEAN CORPUSCULAR VOLUME 91.7 fL (81.0-99.0); MEAN PLATELET VOLUME 10.6 fl (7.4-10.4); MONOCYTES % 11.1 % (2.0-8.0); NEUTROPHILS % 50.5 % (40.0-76.0); PLATELET 132 x1000/uL (130-400); RED BLOOD CELL COUNT 4.15 mill/uL (4.2-5.4); RED CELL DISTRIBUTION WIDTH 15.3 % (11.6-14.6)
[2021-05-13 07:02] LABS: CHLORIDE 107 mEq/L (98-107)
[2021-05-13 07:15] LABS: PHOSPHORUS 2.7 mg/dL (2.5-4.9)
[2021-05-13 08:00] VITALS: BP 150/57
[2021-05-13] MEDS: CHOLECALCIFEROL (D3) 1000 UNIT TABLET PO SCH (08:36)
[2021-05-13] MEDS: ASCORBIC ACID 500 MG TABLET PO SCH ×2 (08:37→20:01)
[2021-05-13] MEDS: ASPIRIN 325MG EC TABLET PO SCH (08:37)
[2021-05-13] MEDS: FAMOTIDINE 20MG TABLET PO SCH (08:37)
[2021-05-13] MEDS: ZINC SULFATE 220 MG ( 50 ) CAPSULE PO SCH (08:37)
[2021-05-13] MEDS: AMLODIPINE 10MG TABLET PO SCH (08:37)
[2021-05-13] MEDS: IPRATROPIUM/ALBUTEROL 0.5-3(2.5)MG/3ML NEB NEB PRN ×2 (09:16→17:13)
[2021-05-13 12:00] VITALS: BP 147/95
[2021-05-13] MEDS: DOCUSATE SODIUM 100MG CAPSULE PO PRN (13:29)
[2021-05-13] MEDS: ENOXAPARIN 40MG/0.4ML SYR SUBCUT SCH (13:29)
[2021-05-13 16:00] VITALS: BP 149/83
[2021-05-13] MEDS: SPIRONOLACTONE 25MG TABLET PO SCH (17:57)
[2021-05-13 20:00] VITALS: BP 144/87
[2021-05-14] VITALS: BP 121/92
[2021-05-14 04:00] VITALS: BP 123/92
[2021-05-14] MEDS: SPIRONOLACTONE 25MG TABLET PO SCH ×2 (05:05→17:17)
[2021-05-14] MEDS: FUROSEMIDE 40MG/4ML VIAL IVP SCH ×2 (05:08→17:17)
[2021-05-14 08:00] VITALS: BP 119/92
[2021-05-14] MEDS: FAMOTIDINE 20MG TABLET PO SCH (08:37)
[2021-05-14] MEDS: AMLODIPINE 10MG TABLET PO SCH (08:37)
[2021-05-14] MEDS: ASCORBIC ACID 500 MG TABLET PO SCH ×2 (08:37→20:27)
[2021-05-14] MEDS: CHOLECALCIFEROL (D3) 1000 UNIT TABLET PO SCH (08:37)
[2021-05-14] MEDS: ASPIRIN 325MG EC TABLET PO SCH (08:37)
[2021-05-14] MEDS: DOCUSATE SODIUM 100MG CAPSULE PO PRN (08:37)
[2021-05-14] MEDS: ZINC SULFATE 220 MG ( 50 ) CAPSULE PO SCH (08:37)
[2021-05-14] MEDS: IPRATROPIUM/ALBUTEROL 0.5-3(2.5)MG/3ML NEB NEB PRN (09:22)
[2021-05-14] MEDS: ENOXAPARIN 40MG/0.4ML SYR SUBCUT SCH (10:27)
[2021-05-14 12:00] VITALS: BP 131/94
[2021-05-14 16:00] VITALS: BP 128/84
[2021-05-14] MEDS: DILTIAZEM HCL 30MG TABLET PO SCH (17:18)
[2021-05-14 20:00] VITALS: BP 120/73
[2021-05-15] VITALS: BP 119/93
[2021-05-15] MEDS: DILTIAZEM HCL 30MG TABLET PO SCH ×4 (01:11→18:38)
[2021-05-15 04:00] VITALS: BP 141/73
[2021-05-15] MEDS: FUROSEMIDE 40MG/4ML VIAL IVP SCH ×2 (05:04→18:37)
[2021-05-15] MEDS: SPIRONOLACTONE 25MG TABLET PO SCH ×2 (05:06→18:38)
[2021-05-15 07:30] LABS: BASOPHILS % 0.8 % (0.0-2.0); EOSINOPHILS % 3.5 % (0.0-5.0); HEMATOCRIT. 42.7 % (36.0-48.0); HEMOGLOBIN. 14.6 g/dL (12.0-16.0); LYMPHOCYTES % 37.6 % (20.0-50.0); MEAN CORPUSCULAR HEMOGLOBIN 31.9 pg (28.0-32.0); MEAN CORPUSCULAR VOLUME 92.9 fL (81.0-99.0); MEAN PLATELET VOLUME 10.7 fl (7.4-10.4); MONOCYTES % 14.4 % (2.0-8.0); NEUTROPHILS % 43.7 % (40.0-76.0); PLATELET 177 x1000/uL (130-400); RED BLOOD CELL COUNT 4.59 mill/uL (4.2-5.4); RED CELL DISTRIBUTION WIDTH 15.9 % (11.6-14.6)
[2021-05-15 07:45] LABS: CHLORIDE 103 mEq/L (98-107)
[2021-05-15 07:53] LABS: PHOSPHORUS 4.1 mg/dL (2.5-4.9)
[2021-05-15 08:00] VITALS: BP 125/67
[2021-05-15] MEDS ORDERED: ASPIRIN 325MG EC TABLET PO SCH (09:00)
[2021-05-15] MEDS: CHOLECALCIFEROL (D3) 1000 UNIT TABLET PO SCH (10:14)
[2021-05-15] MEDS: ASCORBIC ACID 500 MG TABLET PO SCH ×2 (10:14→20:41)
[2021-05-15] MEDS: ZINC SULFATE 220 MG ( 50 ) CAPSULE PO SCH (10:15)
[2021-05-15] MEDS: AMLODIPINE 5MG TABLET PO SCH (10:15)
[2021-05-15] MEDS: FAMOTIDINE 20MG TABLET PO SCH (10:15)
[2021-05-15 12:00] VITALS: BP 131/62
[2021-05-15] MEDS: ENOXAPARIN 40MG/0.4ML SYR SUBCUT SCH (14:27)
[2021-05-15] MEDS: ASPIRIN 81MG EC TABLET PO SCH (14:30)
[2021-05-15 16:00] VITALS: BP 127/68
[2021-05-15 20:00] VITALS: BP 107/62
[2021-05-16] VITALS: BP 108/65
[2021-05-16] MEDS: DILTIAZEM HCL 30MG TABLET PO SCH ×2 (05:02)
[2021-05-16] MEDS: FUROSEMIDE 40MG/4ML VIAL IVP SCH (05:02)
[2021-05-16] MEDS: SPIRONOLACTONE 25MG TABLET PO SCH (05:02)
[2021-05-16 07:59] VITALS: BP 120/82
[2021-05-16] MEDS: CHOLECALCIFEROL (D3) 1000 UNIT TABLET PO SCH (08:32)
[2021-05-16] MEDS: FAMOTIDINE 20MG TABLET PO SCH (08:32)
[2021-05-16] MEDS: ZINC SULFATE 220 MG ( 50 ) CAPSULE PO SCH (08:33)
[2021-05-16] MEDS: ASPIRIN 81MG EC TABLET PO SCH (08:33)
[2021-05-16] MEDS: ASCORBIC ACID 500 MG TABLET PO SCH (08:33)
[2021-05-16] MEDS: AMLODIPINE 5MG TABLET PO SCH (08:33)
[2021-05-16 10:24] VITALS: BP 120/82
== END 2021-05-16 12:00 | disposition home or self-care (01) | DRG 194 ==
LOC: ER 06:39 → 8WST 10:18 → ENRESERV 19:30 → 8WST 20:39
PROVIDERS: ADMIT Internal Medicine; ATTEND Internal Medicine
DX: I11.0 Hypertensive heart disease with heart failure (principal); J96.00 Acute respiratory failure, unspecified whether with hypoxia or hypercapnia; N17.0 Acute kidney failure with tubular necrosis; I50.33 Acute on chronic diastolic (congestive) heart failure; E44.0 Moderate protein-calorie malnutrition; F14.10 Cocaine abuse, uncomplicated; J45.909 Unspecified asthma, uncomplicated; F17.210 Nicotine dependence, cigarettes, uncomplicated; R77.8 Other specified abnormalities of plasma proteins; Z60.2 Problems related to living alone; Z20.822 Contact with and (suspected) exposure to COVID-19; I35.1 Nonrheumatic aortic (valve) insufficiency; I47.1 Supraventricular tachycardia; I49.3 Ventricular premature depolarization; Z88.0 Allergy status to penicillin; Z79.82 Long term (current) use of aspirin; Z79.899 Other long term (current) drug therapy; Z71.6 Tobacco abuse counseling; Z68.26 Body mass index [BMI] 26.0-26.9, adult
CPT/HCPCS: 36415; 71045; 80048; 80053; 80061; 80305; 82550; 82553; 82607; 82746; 83036; 83540; 83550; 83735; 83880; 84100; 84145; 84443; 84484; 85025; 87426; 93005; 93306; 93970; 97166; 99285; C1893; J1650; J1940

== ENCOUNTER 2022-07-20 06:40 | Inpatient (IN) | payer MEDICAID ==
[~2022-07-20] VITALS: Ht 170.2 cm; Wt 79.9 kg
[~2022-07-20 06:40] MED LIST changes: +ALBU6.7H3 IH; -ALBU6.7H9 IH; +COR12 MT; -DILT60TA35 PO; -DOCU-150 PO; -FERR325T23 MT; -FURO-151 MT; -HYDR-4134 PO; -HYDR-4346 MT; -LOSA50TA3 PO; -MOM PO; -PHEN50TA PO; -POLY17PO3 PO; -SENN-3 PO; +TOPUD PO
[2022-07-20] MEDS ORDERED: MAGNESIUM 2 G PREMIX 50 ML IV STA (06:51)
[2022-07-20 07:25] LABS: BASOPHILS % 1.4 % (0.0-2.0); EOSINOPHILS % 2.6 % (0.0-5.0); HEMATOCRIT. 36.8 % (36.0-48.0); LYMPHOCYTES % 26.9 % (20.0-50.0); MEAN CORPUSCULAR HEMOGLOBIN 33.2 pg (28.0-32.0); MEAN CORPUSCULAR VOLUME 94.4 fL (81.0-99.0); MEAN PLATELET VOLUME 10.8 fl (7.4-10.4); MONOCYTES % 7.8 % (2.0-8.0); NEUTROPHILS % 61.3 % (40.0-76.0); PLATELET 168 x1000/uL (130-400); RED CELL DISTRIBUTION WIDTH 16.9 % (11.6-14.6)
[2022-07-20 07:32] LABS: CHLORIDE 111 mEq/L (98-107)
[2022-07-20] MEDS ORDERED: ENALAPRIL 1.25MG/ML VIAL 1ML IV NR (08:15)
[2022-07-20] MEDS ORDERED: FUROSEMIDE 40MG/4ML VIAL IVP ONE (08:15)
[2022-07-20] MEDS ORDERED: ENALAPRIL 2.5MG/2ML VIAL 2ML IV ONE (08:15)
[2022-07-20 15:00] VITALS: BP 145/85
[2022-07-20 16:00] VITALS: BP 136/84
[2022-07-20] MEDS ORDERED: NALOXONE HCL 0.4MG/ML VIAL IV PRN (19:15)
[2022-07-20] MEDS ORDERED: ONDANSETRON HCL 4MG/2ML INJ IV PRN (19:15)
[2022-07-20] MEDS ORDERED: DOCUSATE SODIUM 100MG CAPSULE PO PRN (19:15)
[2022-07-20] MEDS ORDERED: HYDROCODONE/ACETAMINOPHEN 5/325MG TABLET PO PRN (19:15)
[2022-07-20] MEDS ORDERED: ACETAMINOPHEN 325MG TABLET PO PRN ×2 (19:15)
[2022-07-20] MEDS ORDERED: LORAZEPAM 0.5MG TABLET PO PRN (19:15)
[2022-07-20] MEDS ORDERED: CLONIDINE 0.1MG TABLET PO PRN (19:15)
[2022-07-20 20:00] VITALS: BP 133/85
[2022-07-20 20:34] LABS: *AMPHETAMINES SCREEN URINE NEGATIVE (NEGATIVE); *BARBITURATES SCREEN URINE NEGATIVE (NEGATIVE); *BENZODIAZEPINES SCREEN URINE NEGATIVE (NEGATIVE); *COCAINE SCREEN URINE PRESUMTIVE POSITIVE (NEGATIVE); CANNABINOID URINE SCREEN NEGATIVE (NEGATIVE); METHADONE URINE SCREEN NEGATIVE (NEGATIVE); OPIATES URINE SCREEN NEGATIVE (NEGATIVE); PHENCYCLIDINE URINE SCREEN NEGATIVE (NEGATIVE)
[2022-07-20] MEDS ORDERED: ATOR-2 PO (22:31)
[2022-07-20] MEDS ORDERED: PHEN100C12 PO (22:31)
[2022-07-20] MEDS ORDERED: ASPI-1406 PO (22:31)
[2022-07-20] MEDS ORDERED: CARV12.545 PO (22:31)
[2022-07-20] MEDS: PHENYTOIN SODIUM EXTENDED 100MG CAPSULE PO SCH (23:23)
[2022-07-20] MEDS: CARVEDILOL 12.5MG TABLET PO SCH (23:23)
[2022-07-21 04:00] VITALS: BP 118/78
[2022-07-21] MEDS: IPRATROPIUM/ALBUTEROL 0.5-3(2.5)MG/3ML NEB HHN PRN ×3 (05:00→11:46)
[2022-07-21 05:44] LABS: BASOPHILS % 0.7 % (0.0-2.0); EOSINOPHILS % 2.5 % (0.0-5.0); HEMATOCRIT. 34.7 % (36.0-48.0); HEMOGLOBIN. 11.9 g/dL (12.0-16.0); LYMPHOCYTES % 33.2 % (20.0-50.0); MEAN CORPUSCULAR HEMOGLOBIN 31.9 pg (28.0-32.0); MEAN CORPUSCULAR VOLUME 93.4 fL (81.0-99.0); MEAN PLATELET VOLUME 10.8 fl (7.4-10.4); MONOCYTES % 8.7 % (2.0-8.0); NEUTROPHILS % 54.9 % (40.0-76.0); PLATELET 141 x1000/uL (130-400); RED BLOOD CELL COUNT 3.71 mill/uL (4.2-5.4); RED CELL DISTRIBUTION WIDTH 16.2 % (11.6-14.6)
[2022-07-21] MEDS: PHENYTOIN SODIUM EXTENDED 100MG CAPSULE PO SCH ×3 (05:59→22:45)
[2022-07-21 08:00] VITALS: BP 145/100
[2022-07-21 09:18] LABS: BG BASE EXCESS 0.5 mmol/L (-2.0-2.0); BG CARBOXYHEMOGLOBIN 0.9 % (0.5-1.5); BG DEOXYHEMOGLOBIN 4.1 % (0.0-5.0); BG HCO3 ACT 24.8 mmol/L (22.0-26.0); BG METHEMOGLOBIN 0.1 % (0.0-1.5); BG OXYGEN SATURATION 95.9 % (92.0-98.5); BG OXYHEMOGLOBIN 94.9 % (94.0-97.0); BG PCO2 38.8 mmHg (35.0-45.0); BG PH 7.424 (7.350-7.450); BG PO2 82.1 mmHg (75.0-100.0); BG SAMPLE SITE RIGHT BRACHIAL; BG VENT MODE NASAL CANNULA
[2022-07-21] MEDS: CARVEDILOL 12.5MG TABLET PO SCH (09:18)
[2022-07-21] MEDS: ASPIRIN 81MG TABLET PO SCH (09:18)
[2022-07-21] MEDS: FUROSEMIDE 40MG TABLET PO SCH (09:18)
[2022-07-21 12:00] VITALS: BP 118/72
[2022-07-21 16:00] VITALS: BP 155/83
[2022-07-21] MEDS: ENOXAPARIN 40MG/0.4ML SYR SUBCUT SCH (16:11)
[2022-07-21 20:00] VITALS: BP 135/82
[2022-07-21] MEDS: ATORVASTATIN CALCIUM 40MG TABLET PO SCH (22:45)
[2022-07-21] MEDS: BUDESONIDE 0.5MG/2ML NEB HHN SCH (23:06)
[2022-07-21] MEDS: IPRATROPIUM/ALBUTEROL 0.5-3(2.5)MG/3ML NEB HHN SCH (23:06)
[2022-07-22] VITALS: BP 119/89
[2022-07-22 04:00] VITALS: BP 128/91
[2022-07-22 05:42] LABS: BASOPHILS % 1.2 % (0.0-2.0); EOSINOPHILS % 2.9 % (0.0-5.0); HEMATOCRIT. 36.3 % (36.0-48.0); HEMOGLOBIN. 12.2 g/dL (12.0-16.0); LYMPHOCYTES % 36.9 % (20.0-50.0); MEAN CORPUSCULAR HEMOGLOBIN 31.8 pg (28.0-32.0); MEAN CORPUSCULAR VOLUME 94.8 fL (81.0-99.0); MEAN PLATELET VOLUME 11.1 fl (7.4-10.4); MONOCYTES % 9.5 % (2.0-8.0); NEUTROPHILS % 49.5 % (40.0-76.0); PLATELET 140 x1000/uL (130-400); RED BLOOD CELL COUNT 3.83 mill/uL (4.2-5.4); RED CELL DISTRIBUTION WIDTH 16.1 % (11.6-14.6)
[2022-07-22] MEDS: PHENYTOIN SODIUM EXTENDED 100MG CAPSULE PO SCH ×3 (06:29→22:27)
[2022-07-22 08:00] VITALS: BP 142/93
[2022-07-22] MEDS: IPRATROPIUM/ALBUTEROL 0.5-3(2.5)MG/3ML NEB HHN SCH ×3 (08:10→21:49)
[2022-07-22] MEDS: BUDESONIDE 0.5MG/2ML NEB HHN SCH ×2 (08:10→21:48)
[2022-07-22] MEDS: FUROSEMIDE 40MG TABLET PO SCH (09:00)
[2022-07-22] MEDS: ASPIRIN 81MG TABLET PO SCH (09:00)
[2022-07-22 12:00] VITALS: BP 138/88
[2022-07-22 12:25] LABS: BG BASE EXCESS -1.3 mmol/L (-2.0-2.0); BG CARBOXYHEMOGLOBIN 0.8 % (0.5-1.5); BG DEOXYHEMOGLOBIN 5.7 % (0.0-5.0); BG FRACTION INSPIRED OXYGEN 21; BG HCO3 ACT 21.7 mmol/L (22.0-26.0); BG METHEMOGLOBIN 0.2 % (0.0-1.5); BG OXYGEN SATURATION 94.2 % (92.0-98.5); BG OXYHEMOGLOBIN 93.3 % (94.0-97.0); BG PCO2 31.5 mmHg (35.0-45.0); BG PH 7.457 (7.350-7.450); BG PO2 69.6 mmHg (75.0-100.0); BG SAMPLE SITE RIGHT RADIAL; BG TOTAL HEMOGLOBIN 12.7 g/dL (12.0-18.0); BG VENT MODE ROOM AIR
[2022-07-22] MEDS: ENOXAPARIN 40MG/0.4ML SYR SUBCUT SCH (15:05)
[2022-07-22 16:00] VITALS: BP 141/78
[2022-07-22] MEDS: FUROSEMIDE 40MG/4ML VIAL IVP SCH (18:12)
[2022-07-22 20:00] VITALS: BP 143/82
[2022-07-22] MEDS ORDERED: BENZONATATE 100MG CAPSULE PO PRN (20:30)
[2022-07-22] MEDS: ATORVASTATIN CALCIUM 40MG TABLET PO SCH (22:27)
[2022-07-23] VITALS: BP 105/56
[2022-07-23] MEDS: IPRATROPIUM/ALBUTEROL 0.5-3(2.5)MG/3ML NEB HHN SCH ×4 (03:29→16:06)
[2022-07-23] MEDS: PHENYTOIN SODIUM EXTENDED 100MG CAPSULE PO SCH ×2 (06:54→14:03)
[2022-07-23 08:00] VITALS: BP 147/100
[2022-07-23] MEDS: BUDESONIDE 0.5MG/2ML NEB HHN SCH (08:05)
[2022-07-23] MEDS: ASPIRIN 81MG TABLET PO SCH (10:13)
[2022-07-23] MEDS: FUROSEMIDE 40MG/4ML VIAL IVP SCH (10:13)
[2022-07-23 12:00] VITALS: BP 132/88
[2022-07-23] MEDS: ENOXAPARIN 40MG/0.4ML SYR SUBCUT SCH (14:04)
[2022-07-23] MEDS ORDERED: AMLODIPINE 5MG TABLET PO NR (14:30)
[2022-07-23] MEDS ORDERED: FURO40TA5 MT (14:45)
[2022-07-23] MEDS ORDERED: LIP40 PO (14:45)
[2022-07-23] MEDS ORDERED: AMLO5TAB88 PO (14:45)
[2022-07-23] MEDS ORDERED: ASPI-1160 PO (14:45)
[2022-07-23] MEDS ORDERED: COR12 PO (14:45)
[2022-07-23] MEDS ORDERED: PHEN100C4 PO (14:45)
[2022-07-23 15:23] VITALS: BP 147/100
[2022-07-23 15:32] VITALS: BP 147/90
[2022-07-23] MEDS ORDERED: FUROSEMIDE 40MG/4ML VIAL IVP SCH (17:00)
[2022-07-23] MEDS ORDERED: AMLODIPINE 5MG TABLET PO SCH (21:00)
== END 2022-07-23 16:15 | disposition home or self-care (01) | DRG 816 ==
LOC: ER 06:40 → 7EST 09:32 → EDBEDREQ 09:41
PROVIDERS: ADMIT Family Medicine Adult Medicine; ATTEND Family Medicine Adult Medicine
DX: T40.5X1A Poisoning by cocaine, accidental (unintentional), initial encounter (principal); J96.00 Acute respiratory failure, unspecified whether with hypoxia or hypercapnia; I50.33 Acute on chronic diastolic (congestive) heart failure; N17.9 Acute kidney failure, unspecified; E44.1 Mild protein-calorie malnutrition; I11.0 Hypertensive heart disease with heart failure; J68.0 Bronchitis and pneumonitis due to chemicals, gases, fumes and vapors; I42.0 Dilated cardiomyopathy; I47.1 Supraventricular tachycardia; F14.10 Cocaine abuse, uncomplicated; G40.909 Epilepsy, unspecified, not intractable, without status epilepticus; D64.9 Anemia, unspecified; I08.3 Combined rheumatic disorders of mitral, aortic and tricuspid valves; I49.3 Ventricular premature depolarization; E78.5 Hyperlipidemia, unspecified; F17.210 Nicotine dependence, cigarettes, uncomplicated; Z85.528 Personal history of other malignant neoplasm of kidney; Z82.49 Family history of ischemic heart disease and other diseases of the circulatory system; Z90.5 Acquired absence of kidney; Z88.0 Allergy status to penicillin; Y92.89 Other specified places as the place of occurrence of the external cause
CPT/HCPCS: 36415; 36600; 71045; 80048; 80053; 80305; 82375; 82805; 83735; 83880; 84484; 85025; 87426; 93005; 93306; 94618; 94640; 99285; J1650; J1940; J3475; J3490; J7626